=== PATIENT | female | born 1980 | race Caucasian/White ===

== ENCOUNTER → 2023-02-09 13:16 | Outpatient (CLI) | payer OTHER, SELFPAY ==
--- NOTE | 2023-02-09 13:16 | US_ITS ---
FINAL REPORT TECHNIQUE: Sonographic images of the pelvis were obtained transvaginally. CLINICAL HISTORY: Mennorrhagia FINDINGS: The uterus is anteverted and retroflexed. It measures 9.4 x 4.0 x 3.9 cm. The endometrial stripe measures 3 mm. The myometrium is homogeneous. There is a nabothian cyst in the cervix. The right ovary measures 2.9 x 1.9 x 2.4 cm. There are multiple follicles. The left ovary measures 2.2 x 1.8 x 1.4 cm. There are multiple follicles. Color imaging to the ovaries is within normal limits. There is no free fluid. IMPRESSION: Normal sonographic appearance to the uterus and ovaries for age. Reviewed, Interpreted and Dictated by Elsi Pierre MD Transcribed by Mary Ellen Aviles Authenticated and [facility]
== END ==
PROVIDERS: PCP Family Medicine; Visit Provider Obstetrics & Gynecology
DX: N92.0 Excessive and frequent menstruation with regular cycle (principal)
CPT/HCPCS: 76830